=== PATIENT | male | born 1990 | race Two or more races ===

== ENCOUNTER 2022-10-19 13:42 | Emergency (ER) | payer OTHER, SELFPAY ==
[2022-10-19 14:20] VITALS: BP 121/79; PULSE 88; RESP 17; TEMP 36.8; O2SAT 100; BMI 27.4
[2022-10-19 14:30] VITALS: BP 115/83; PULSE 89; RESP 17; O2SAT 100
--- NOTE | 2022-10-19 14:42 | PC.NURSE ---
DR. VENTURA AT BEDSIDE FOR EVALUATION
--- NOTE | 2022-10-19 14:42 | HMH.EDBACK ---
Discharge Plan Disposition Patient Disposition: Home, Self-Care Condition: Good Prescriptions Prescriptions: New cyclobenzaprine 10 mg tablet 10 mg PO TID PRN (Reason: muscle spasm) Qty: 20 0RF Activity Restrictions/Add. Instructions Additional Instructions/Restrictions: Follow-up with your primary care doctor in about 1 week if you do not feel better. Take Tylenol and Motrin for your pain. Return to the emergency department if you feel worse in any way. Do not lift anything heavier than 5 pounds (shopping bag). Avoid stooping or bending forward. Clinical Impressions Clinical Impression: Strain of lumbar region Instructions Patient Instructions: DI for Low Back Pain Print Language Print Language: Marshallese Discharge ED Provider: Escobar Lyons Back Pain HPI General Chief Complaint: Back Pain/Injury Stated Complaint: back pain, no accident Time Seen by Provider: 10/19/22 14:42 Mode of Arrival: Ambulatory Limitations: No Limitations Description of Symptoms (Recalled from ER Triage Doc. by RN): PT REPORTS LOW BACK PAIN X 5 MONTHS, PAIN HAS INCREASED MORE THE PASSED FEW DAYS. NO INJURY OR ACCIDENT. NO RADIATION. History of Present Illness HPI Narrative: The patient presents to the emergency department complaining of approximately 10 months history of low back pain which is worse when the patient ian. 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 He had to stop working due to the pain. He denies any neurologic symptoms. He denies any pain when he is standing upright. He denies any nausea vomiting or diarrhea. MD Complaint: back pain Related Data Previous Rx's Medication Instructions Recorded cyclobenzaprine 10 mg tablet 10 mg PO TID PRN muscle spasm #20 10/19/22 tabs Allergies Allergy/AdvReac Type Severity Reaction Status Date / Time No Known Allergies Allergy Verified 10/19/22 15:52 [facility] Disclaimer: The information contained in this section may have been updated after the patient was seen, as this information can be updated by other users. Social History Smoking Status: Never smoker alcohol intake: current current occupational status: employed Travel in the last 8 weeks: None ROS Obtained: Yes All systems reviewed & no additional complaints except as documented Physical Exam General General appearance: alert Head Head exam: atraumatic Eye Eye exam: Present normal appearance ENT ENT exam: Present normal exam Neck Neck exam: Present normal inspection and full ROM; Absent tenderness or meningismus Chest Chest inspection: Present normal inspection and symmetric chest wall rise; Absent tenderness Respiratory Respiratory exam: Present normal lung sounds bilaterally; Absent respiratory distress or accessory muscle use Cardiovascular Cardiovascular exam: Present regular rate, normal rhythm and normal heart sounds Abdominal Exam Abdominal exam: Present soft and normal bowel sounds; Absent distention, tenderness, heel tap sign, Vee's sign, Rovsing's sign, tenderness at McBurney's Point or mass Extremities Exam Extremities exam: Present normal inspection and full ROM Back Exam Back exam: Present normal inspection, full ROM and other (6There are 2 small lipomas on the right sacral area.); Absent tenderness, CVA tenderness (R) or CVA tenderness (L) Neurological Exam Neurological exam: Present alert and oriented X3 Psychiatric Psychiatric exam: Present normal affect and normal mood Skin Skin exam: Present warm, dry, intact and normal color Medical Decision Making Medical Records Medical records reviewed: Yes I reviewed the patient's medical records. Kev Inquiry Pt receiving controlled substance: No Vital Signs: 10/19/22 14:20 10/19/22 14:30 10/19/22 15:30 Temperature 98.3 F Temperature Source Oral Pulse Rate 89 82 Pulse Rate [Radial] 88 Respiratory Rate 17 17 17 Blood Pressure 115/83 108/71 L Blood Pressure [Right Arm] 121/79 Blood Pressure Mean
--- NOTE | 2022-10-19 14:44 | XR_ITS ---
PROCEDURE INFORMATION: Exam: XR Lumbosacral Spine Exam date and time: 10/19/2022 2:52 PM Age: 32 years old Clinical indication: Low back pain TECHNIQUE: Imaging protocol: Radiologic exam of the lumbosacral spine. Views: 2 or 3 views. COMPARISON: No relevant prior studies available. FINDINGS: Bones/joints: Normal. No acute fracture. Normal alignment. Soft tissues: Unremarkable. IMPRESSION: No acute findings in the lumbosacral spine.
--- NOTE | 2022-10-19 15:00 | PC.NURSE ---
PT GOING TO XRAY VIA WHEELCHAIR
--- NOTE | 2022-10-19 15:06 | PC.NURSE ---
PT BACK FROM XRAY
[2022-10-19 15:30] VITALS: BP 108/71; PULSE 82; RESP 17; O2SAT 100
--- NOTE | 2022-10-19 15:50 | PC.NURSE ---
DR VENTURA AT BEDSIDE TO DISCUSS POC
[2022-10-19 16:05] VITALS: BP 111/74; PULSE 69; RESP 16; TEMP 36.8; O2SAT 99
== END 2022-10-19 16:05 | disposition home or self-care (01) ==
PROVIDERS: Emergency Provider Emergency Medicine
DX: S39.012A Strain of muscle, fascia and tendon of lower back, initial encounter (principal); X58.XXXA Exposure to other specified factors, initial encounter
CPT/HCPCS: 72100; 99283; 99284